=== PATIENT | female | born 1995 | race African-American/Black ===

== ENCOUNTER 2019-02-02 04:11 | Emergency (ER) | payer MEDICAID, OTHER ==
[~2019-02-02] VITALS: Ht 175.3 cm; Wt 58.0 kg
[2019-02-02] MEDS ORDERED: LIDOCAINE HCL/PF 1% 10 MG/ML 5ML VIAL IJ ONE (05:00)
[2019-02-02 05:54] VITALS: BP 121/72
== END 2019-02-02 05:55 | disposition home or self-care (01) ==
LOC: ER 04:11
DX: L60.0 Ingrowing nail (principal); J45.909 Unspecified asthma, uncomplicated; F17.210 Nicotine dependence, cigarettes, uncomplicated
CPT/HCPCS: 99283; J3490; Z7610